=== PATIENT | male | born 1990 | race Two or more races ===

== ENCOUNTER 2020-03-14 13:48 | Emergency (ER) | payer OTHER ==
[2020-03-14 13:55] VITALS: BP 134/80
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
[2020-03-14] MEDS ORDERED: DEXAMETHASONE 10 MG/ML VIAL PO STA (14:14)
[2020-03-14] MEDS ORDERED: KETOROLAC 60 MG/2 ML VIAL IM STA (14:14)
[2020-03-14] MEDS ORDERED: CHERRY SYRUP 10 ML UDC PO ONE (14:14)
[2020-03-14] MEDS ORDERED: HYDROmorphone 2 MG/ML VIAL IM STA (14:14)
[2020-03-14] MEDS ORDERED: methocarbamoL 500 MG TABLET PO STA (14:14)
[2020-03-14] MEDS ORDERED: HYDROmorphone 1 MG/ML CARPUJECT IM STA (14:27)
== END 2020-03-14 14:45 | disposition home or self-care (01) ==
LOC: ED 13:48
DX: M54.5 Low back pain (principal)
CPT/HCPCS: 96372; 99284; A9270; J1170